=== PATIENT | male | born 1995 | race Caucasian/White ===

== ENCOUNTER 2020-02-16 09:41 | Emergency (ER) | payer SELFPAY ==
--- NOTE | 2020-02-16 10:17 | RAD ---
RADIOGRAPH CHEST 1 VIEW: DATE: 02/16/2020 HISTORY: 24-year-old male with hypotension FINDINGS: The visualized lung sims are clear. The cardiomediastinal silhouette and hilar shadows are normal. The lateral costophrenic angles are sharp. The osseous structures appear normal. There is no pneumothorax. IMPRESSION: Negative.
[2020-02-16 10:33] LABS: #Eosinphils 0.1 thou/uL (0.0-0.7); #Lymphocytes 1.7 thou/uL (1.20-3.40); #Monocytes 0.4 thou/uL (0.11-0.59); #Neutrophils 6.2 thou/uL (1.40-6.50); %Basophils 0.2 % (0.0-1.0); %Eosinophils 1.4 % (0.0-10.0); %Monocytes 4.7 % (0.0-10.0); %Neutrophils 73.7 % (42.0-75.0); Hemoglobin 14.8 g/dL (14.0-18.0); Mean Corpuscular HGB CONC 33.5 g/dL (32.0-36.0); Mean Corpuscular Hemoglobin 29.8 pg (27.0-31.0); Mean Corpuscular Volume 88.9 fL (78.0-98.0); Mean Platelet Volume 11.4 fL (7.4-10.4); Platelet Count 154 thou/uL (130-400); RBC Distribution Width 11.7 % (11.5-14.5); Red Blood Cell (RBC) Count 4.98 mill/uL (4.70-6.10); White Blood Cell (WBC) Count 8.4 thou/uL (4.8-10.8)
[2020-02-16 10:44] LABS: Bacteria/HPF None Seen HPF (None Seen); Bilirubin Negative (Negative); Blood, Urine Negative (Negative); Clarity Clear (Clear); Glucose, Urine (Dipstick) Normal (Negative); Leukocyte 75 Leu/uL (Negative); Mucous/LPF 1+ LPF (<2+); Nitrite Negative (Negative); Protein, Urine (Dipstick) 70 mg/dL (Neg-Trace); Squamous Epithelial 0-3 HPF (0-3); WBC/HPF 21-50 HPF (0-3)
[2020-02-16 10:53] LABS: ALT (SGPT) 19 U/L (8-55); AST (SGOT) 22 U/L (5-34); Albumin 4.2 g/dL (3.5-5.0); Alkaline Phosphatase 65 U/L (40-110); Anion Gap 9 mmol/L (10-20); BUN (Urea Nitrogen) 9 mg/dL (8.9-20.6); Bilirubin, Total 0.6 mg/dL (0.2-1.2); Calc. Creatinine Clearance 0 mL/min (70-130); Calcium 8.4 mg/dL (7.8-10.44); Carbon Dioxide 26 mmol/L (22-29); Chloride 107 mmol/L (98-107); Estimated GFR-MDRD Greater than 90; Globulin 2.4 g/dL (2.4-3.5); Glucose 120 mg/dL (70-105); Potassium 3.4 mmol/L (3.5-5.1); Protein, Total 6.6 g/dL (6.0-8.3); Sodium 139 mmol/L (136-145)
[2020-02-16] MEDS ORDERED: Azithromycin 250 MG TAB ONE (12:00)
[2020-02-16] MEDS ORDERED: cefTRIAXone\\ROCEPHIN 1 GM VIAL ONE (12:00)
[2020-02-16] MEDS ORDERED: Lidocaine 1% PF 5 ML VIAL ONE (12:01)
[2020-02-16 20:43] LABS: Chlam.trachomatis by PCR,Urine DETECTED (NotDetected)
--- NOTE | 2020-02-20 12:55 | EKG ---
Test Reason : Blood Pressure : / mmHG Vent. Rate : 075 BPM Atrial Rate : 075 BPM P-R Int : 164 ms QRS Dur : 090 ms QT Int : 352 ms P-R-T Axes : 069 076 058 degrees QTc Int : 393 ms Poor data quality, interpretation may be adversely affected Normal sinus rhythm Normal ECG Confirmed by TITUS MCKINNEY ([id number]), acquisition editor YRIS JEFFREY ([id number]) on 02/20/2020 12:55:22 PM Referred By: Confirmed By:TITUS Merino
== END 2020-02-16 12:28 | disposition home or self-care (01) ==
LOC: ERS 09:41
DX: T65.91XA Toxic effect of unspecified substance, accidental (unintentional), initial encounter (principal); Z20.2 Contact with and (suspected) exposure to infections with a predominantly sexual mode of transmission
CPT/HCPCS: 36415; 71045; 80053; 81003; 81015; 84484; 85025; 87491; 87591; 93005; 96360; 96372; J0696; J2001

== ENCOUNTER 2020-03-23 15:36 | Emergency (ER) | payer SELFPAY ==
[2020-03-23 20:36] LABS: Bacteria/HPF 2+ HPF (None Seen); Bilirubin Negative (Negative); Blood, Urine Negative (Negative); Calcium Oxalate Crystals 1+ HPF (None Seen); Clarity Turbid (Clear); Glucose, Urine (Dipstick) Normal (Negative); Ketone, Urine Negative (Negative); Leukocyte 75 Leu/uL (Negative); Nitrite Negative (Negative); Protein, Urine (Dipstick) Negative (Neg-Trace); RBC/HPF 0-3 HPF (0-3); Specific Gravity, Urine 1.027 (1.002-1.036); Squamous Epithelial None Seen HPF (0-3); Urobilinogen Normal mg/dL (Less than 2); WBC/HPF 21-50 HPF (0-3); pH, Urine 6.5 (5.0-9.0)
[2020-03-23] MEDS ORDERED: cefTRIAXone\\ROCEPHIN 250 MG VIAL ONE (20:54)
[2020-03-23] MEDS ORDERED: Azithromycin 250 MG TAB ONE (20:54)
[2020-03-23] MEDS ORDERED: Lidocaine 1% (PF) 30 ML VIAL ONE (20:55)
[2020-03-24 20:05] LABS: Chlam.trachomatis by PCR,Urine DETECTED (NotDetected)
== END 2020-03-23 21:26 | disposition home or self-care (01) ==
LOC: ERS 15:36
DX: N39.0 Urinary tract infection, site not specified (principal)
CPT/HCPCS: 81003; 81015; 87491; 87591; 96372; 99283; J0696; J2001